=== PATIENT | male | born 1960 | race Caucasian/White ===

== ENCOUNTER 2018-05-17 08:00 | Outpatient (RCR) | payer OTHER, SELFPAY ==
--- NOTE | 2018-03-05 11:57 | HP.PTEVAL_ITS ---
Patient's Visit Information [place] HOLLIS is a 57 year old M referred to Physical Therapy by LILIA FOSTER with a diagnosis of B TKR s/p 02-07-18. Date of Evaluation: 03/05/18 Physical Therapist: Aliya Khan - Visit Plan Frequency: 3x /Week Duration: 6 Weeks Plan: 3X/ week for 6 weeks for B knee AROM, PROM, stretching, strengthening, gait training, functional transfers, with HEP - Subjective Subjective: Dr Posada was the surgeon. 02-07-18 B TKR. Pt was walking around since 2 weeks post-op with a can until her had a pop in his back on Sunday after home health PT when he slid a chair. It has been bothering him since and had to go back to a rolling walker. Getting out of bed became more difficult. He has stairs at home when he goes up stairs to shower as he is sleeping on the first floor. He has stairs on the front porch with railing on the the L and a cane and does them recip ( goes down is sideways step by step). Sit to stand from and armed chair is not a problem. HEP: QS, supine hip abd , SAQ, SLR, and AA towel slides and in the chair heel slides and LAQ. His measurements have been about 100 this past Sunday. He feels that his extension has been close to zero. 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 - Pain B knee pain Pain Intensity (Out of 10): 0 - Objective Gait: walks with flexed posture with front wheel walker, heavy weight through arms with gait with slightly decreased knee extension. Pt able to walk more heel to toe with verbal cuing. R knee AROM: -9 degrees from full extension to 104 degrees. L Knee AROM: -5 degrees from full extension to 106 degrees. Stairs: up and down stairs recip with B hand rails ( slow deliberate movements) . Sit to stand: needs ue to help up out of the chair. LE MMT: B knee ext 3-/ 5, B knee flex 4-/5, B hip flex 4-/5, B hip abd 4+/5. Pt is able to heel and toe raise with flexion at the trunk. - Goals Goal 1:: I HEP Goal Time Frame: 4-6 Weeks Goal 2:: Walk I without antalgic gait Goal Time Frame: 4-6 Weeks Goal 3:: Up and down stairs recip with 1 rail with smooth pattern Goal Time Frame: 4-6 Weeks Goal 4:: Increase B knee AROM 0-120 degrees B knee flexion Goal Time Frame: 4-6 Weeks - Rehabilitation Potential Rehabilitation Potential: Good - Anticipated Interventions Patient/Client Instruction: Educate patient on: Condition, Plan of Care For the Purpose of:: To decrease pain, To decrease swelling/inflammation, To increase ROM, To improve nutrient delivery to tissue, To improve muscle performance and motor function, To improve ability to perform ADL's, To increase tolerance to activity/condition/position, To improve performance and independence with ADL's, To decrease level of supervision to perform tasks, To improve ability of physical actions for home/community/work/leisure, To improve gait and locomotor functions, To improve health of tissue, To decrease soft tissue restriction, To increase flexibility/ROM, To improve balance, To improve safety with gait Therapeutic Exercise to Include: Strength training, Balance training, Body mechanics, Flexibilty training, Gait and locomotor training, Neuromotor development, Passive ROM, Active ROM For the Purpose of:: To decrease pain, To decrease swelling/inflammation, To increase ROM, To improve nutrient delivery to tissue, To improve muscle performance and motor function, To improve ability to perform ADL's, To increase tolerance to activity/condition/position, To improve performance and independence with ADL's, To decrease level of supervision to perform tasks, To improve ability of physical actions for home/community/work/leisure, To improve gait and locomotor functions, To improve health of tissue, To decrease soft tissue restriction, To increase flexibility/ROM, To improve balance, To improve safety with gait Functional Training to Include: Gait training For the Purpose of:: To improve gait and locomotor functions Manual Therapy Techniques to Include: Passive ROM For the Purpose of:: To increase ROM Cryotherapy (ice pack, ice massage): Yes For the Purpose of:: To decrease pain, To decrease swelling/inflammation Thank you for the opportunity to evaluate your patient. For Medicare and Medicare HMO plans, please review the plan of care and approve it. It will need to be FAXED BACK to us at [phone] for Medicare purposes. Please let me know if there are questions or concerns regarding this plan of care. Physician Signature: Date:
--- NOTE | 2018-05-17 09:49 | HP.PTDCSUM ---
HP - PT D/C Summary It has been my pleasure to treat KY HOLLIS under orders from LILIA FOSTER, for the diagnosis of B TKR s/p 02-07-18 for a total of 28 visit(s). Discharge Date: 05/17/18 Please see the following information for a summary of their discharge status. - Subjective Subjective: Pt reports that he is still struggling with tightness in his quads and did get a cramp in his hamstrings while doing work around the house. - Pain B knee pain Pain Intensity (Out of 10): 0 - Overall Improvement % Improvement: 80 - Objective Objective/Function: Stairs: up and down recip with no rail with smooth pattern. Gait: walks with a little flexed trunk but equal stance time on B legs. L knee AROM:-2 degrees from full extension to 115 degrees knee flexion. R knee AROM: -5 degrees from full extension to 113 degrees knee felxion. Pt is extrmemly tight in B Quad with some HS tightness as well - Goals Goal 1:: I HEP Goal Progress: Goal Met Goal 2:: Walk I without antalgic gait Goal Progress: Goal Met Goal 3:: Up and down stairs recip with 1 rail with smooth pattern Goal Progress: Goal Met Goal 4:: Increase B knee AROM 0-120 degrees B knee flexion Goal Progress: Progressing - Plan Plan: Pt to look into MT by daughter to HAMS/QUADS. Pt has full home program including Inchworms, chair quad stretches, squats to 12 inch box, eccentric steps downs, lunges etc. Did issue a blue band to increase program as needed. DC PT to HEP - D/C Information Discharge Comments: DC PT to HEP If there are questions or concerns regarding this patient's physical therapy, please feel free to call me at [phone]. Thank you for the referral of this patient. Sincerely, Aliya Khan
== END 2018-05-17 19:00 | disposition home or self-care (01) ==
LOC: PT 08:00
DX: Z96.653 Presence of artificial knee joint, bilateral (principal)
CPT/HCPCS: 97110; 97161